=== PATIENT | female | born 1990 | race Caucasian/White ===

== ENCOUNTER 2017-08-19 09:31 | Emergency (ER) | payer SELFPAY ==
[~2017-08-19] VITALS: Ht 167.6 cm; Wt 117.0 kg
[~2017-08-19 09:31] MED LIST: MOBIC15 MG PO; NEURONTIN300 MG PO; PERCOCET 5/31 TABLET PO; TRAMADOL HCL50 MG PO; ZOFRAN8 MG PO
[2017-08-19 10:16] LABS: EOSINOPHIL (%) 2.7 % (0-5); EOSINOPHIL COUNT 0.3 K/uL (0-0.3); HEMATOCRIT 45.3 % (36.0-46.0); IMMATURE GRANULOCYTE (%) 0.5 % (0.0-0.7); IMMATURE GRANULOCYTE COUNT 0.1 K/uL; LYMPHOCYTE COUNT 1.8 K/uL (1.0-2.8); MCH 28.5 PG (29.0-34.0); MCV 83.7 FL (83-99); MEAN PLAT.VOLUME 10.4 uM^3 (9.5-12.4); MONOCYTE (%) 4.4 % (3-12); MONOCYTE COUNT 0.4 K/uL (0-0.8); PLATELET COUNT 264 K/uL (156-360); RBC DIS.WIDTH-CV 12.4 % (11.8-14.6); RBC DIS.WIDTH-SD 37.3 % (39-53); RED BLOOD COUNT 5.41 M/uL (3.80-5.20); WHITE BLOOD COUNT 9.5 K/uL (4.1-10.2)
[2017-08-19 10:24] LABS: CHLORIDE 108 mEq/L (99-109); POTASSIUM 4.2 mEq/L (3.7-5.4); SODIUM 139 mEq/L (136-147)
[2017-08-19 10:26] LABS: GLUCOSE 108 mg/dL (70-99)
[2017-08-19 10:28] LABS: ANION GAP 10 MEQ/L (2-14)
[2017-08-19 10:30] LABS: GFR ESTIMATE (CALCULATED) > 59 mL/min/
[2017-08-19 10:31] LABS: UREA NITROGEN (BUN) 12 mg/dL (9-23)
[2017-08-19 10:36] LABS: ADD MIUA? YES; BILIRUBIN NEGATIVE; BLOOD LARGE; COLOR YELLOW ((YELLOW)); GLUCOSE (STRIP) NEGATIVE; KETONES NEGATIVE; LEUKOCYTES NEGATIVE; NITRITE NEGATIVE; PROTEIN (STRIP) 100; SPECIFIC GRAVITY 1.026 (1.000-1.030); UROBILINOGEN 0.2 MG/DL (0.2-1.0)
[2017-08-19 10:39] LABS: BACTERIA RARE /HPF; EPITHELIAL CELLS 1+ /HPF; MUCUS 2+ /LPF; RED BLOOD CELLS TNTC /HPF (0-5)
[2017-08-19] MEDS ORDERED: INDOCIN50 MG PO (12:42)
[2017-08-19] MEDS ORDERED: DILAUDID2 MG PO (12:42)
[2017-08-19 12:58] VITALS: BP 113/76
== END 2017-08-19 13:02 | disposition home or self-care (01) ==
LOC: EME 09:31
PROVIDERS: Emergency Medicine
DX: N13.2 Hydronephrosis with renal and ureteral calculous obstruction (principal); R56.9 Unspecified convulsions; F17.200 Nicotine dependence, unspecified, uncomplicated; Z87.442 Personal history of urinary calculi; Z88.8 Allergy status to other drugs, medicaments and biological substances
CPT/HCPCS: 74176; 80048; 81003; 85025; 99281; 99285; J1170; J1885; J2270; J2405; J7050

== ENCOUNTER 2017-08-20 23:14 | Observation (INO) | payer SELFPAY ==
[~2017-08-20] VITALS: Ht 167.6 cm; Wt 118.1 kg
[~2017-08-20 23:14] MED LIST changes: +DILAUDID2 MG PO; +INDOCIN50 MG PO
[2017-08-20 23:41] LABS: ADD MIUA? YES; BILIRUBIN NEGATIVE; BLOOD SMALL; COLOR AMBER ((YELLOW)); GLUCOSE (STRIP) NEGATIVE; KETONES NEGATIVE; LEUKOCYTES SMALL; NITRITE NEGATIVE; PROTEIN (STRIP) 100
[2017-08-20 23:50] LABS: EOSINOPHIL (%) 2.1 % (0-5); EOSINOPHIL COUNT 0.2 K/uL (0-0.3); HEMATOCRIT 42.1 % (36.0-46.0); IMMATURE GRANULOCYTE (%) 0.4 % (0.0-0.7); IMMATURE GRANULOCYTE COUNT 0.1 K/uL; INSTRUMENT ABS NEUTROPHIL CT 7.3 K/uL; LYMPHOCYTE COUNT 3.5 K/uL (1.0-2.8); MCH 28.3 PG (29.0-34.0); MCHC 34.4 G/DL (30.0-36.0); MCV 82.2 FL (83-99); MEAN PLAT.VOLUME 10.7 uM^3 (9.5-12.4); MONOCYTE COUNT 0.6 K/uL (0-0.8); NEUTROPHIL (%) 62.5 % (45-76); NEUTROPHIL COUNT 7.3 K/uL (1.8-6.4); PLATELET COUNT 294 K/uL (156-360); RBC DIS.WIDTH-CV 12.4 % (11.8-14.6); RBC DIS.WIDTH-SD 37.2 % (39-53); RED BLOOD COUNT 5.12 M/uL (3.80-5.20); WHITE BLOOD COUNT 11.7 K/uL (4.1-10.2)
[2017-08-21 00:01] LABS: CHLORIDE 106 mEq/L (99-109); POTASSIUM 3.9 mEq/L (3.7-5.4); SODIUM 139 mEq/L (136-147)
[2017-08-21 00:02] LABS: GLUCOSE 113 mg/dL (70-99)
[2017-08-21 00:04] LABS: ANION GAP 12 MEQ/L (2-14)
[2017-08-21 00:06] LABS: BACTERIA 2+ /HPF; CALCIUM OXALATE CRYSTALS 3+ /HPF; CASTS NONE SEEN /LPF; CRYSTALS PRESENT; EPITHELIAL CELLS 2+ /HPF; GFR ESTIMATE (CALCULATED) > 59 mL/min/; MUCUS 3+ /LPF; RED BLOOD CELLS NONE SEEN /HPF (0-5); UCUL ADDED? YES; WHITE BLOOD CELLS 0-5 /HPF (0-5)
[2017-08-21 00:07] LABS: UREA NITROGEN (BUN) 14 mg/dL (9-23)
[2017-08-21 03:51] VITALS: BP 124/79
[2017-08-21 11:56] VITALS: BP 128/70
[2017-08-21 16:38] VITALS: BP 121/63
[2017-08-21 20:00] VITALS: BP 125/75
[2017-08-22 00:03] VITALS: BP 109/66
[2017-08-22 08:00] VITALS: BP 153/90
[2017-08-22] MEDS ORDERED: TAMSULOSIN HCL0.4 MG PO (10:47)
[2017-08-22] MEDS ORDERED: KEFLEX500 MG PO (10:48)
[2017-08-22 12:17] VITALS: BP 112/71
== END 2017-08-22 14:03 | disposition home or self-care (01) ==
LOC: EME 23:14 → EDOF 08-21 02:47 → 5WEST 08-21 02:47 → ENRESERV 08-21 02:49 → 5WEST 08-21 03:41
PROVIDERS: Emergency Medicine
DX: N13.6 Pyonephrosis (principal); N39.0 Urinary tract infection, site not specified; Z87.442 Personal history of urinary calculi; J45.909 Unspecified asthma, uncomplicated; E66.01 Morbid (severe) obesity due to excess calories; Z68.41 Body mass index [BMI] 40.0-44.9, adult; Z86.69 Personal history of other diseases of the nervous system and sense organs; F32.9 Major depressive disorder, single episode, unspecified; F41.9 Anxiety disorder, unspecified; F60.3 Borderline personality disorder; M79.89 Other specified soft tissue disorders; F17.210 Nicotine dependence, cigarettes, uncomplicated; F12.90 Cannabis use, unspecified, uncomplicated; Z88.8 Allergy status to other drugs, medicaments and biological substances
CPT/HCPCS: 74000; 80048; 81003; 85025; 87086; 99281; 99285; G0378; J0696; J1200; J1885; J2270; J2405; J3010; J7030